=== PATIENT | female | born 1975 | race Two or more races ===

== ENCOUNTER 2023-11-24 07:45 | Emergency (ER) | payer MEDICAID ==
[~2023-11-24] VITALS: Ht 165.1 cm; Wt 86.3 kg
[2023-11-24 08:40] VITALS: BP 124/72; PULSE 70; RESP 18; TEMP 98; O2SAT 98
[2023-11-24] MEDS ORDERED: AMOX875T3 PO (08:44)
[2023-11-24] MEDS ORDERED: IBUP-1456 PO (08:44)
[2023-11-24] MEDS ORDERED: PRED20TA2 PO (08:44)
== END 2023-11-24 09:03 | disposition home or self-care (01) ==
LOC: ER 07:45
DX: J06.9 Acute upper respiratory infection, unspecified (principal); H66.92 Otitis media, unspecified, left ear; Z79.899 Other long term (current) drug therapy

== ENCOUNTER 2024-08-09 07:53 | Emergency (ER) | payer MEDICAID ==
[~2024-08-09] VITALS: Ht 162.6 cm; Wt 86.9 kg
[~2024-08-09 07:53] MED LIST: AMOX875T3 PO; IBUP-1456 PO; PRED20TA2 PO
--- NOTE | 2024-08-09 08:14 | ED.PDOC ---
Eye-HPI HPI Comments 48Y F presents to ED with chief complaint left eye pain x1day. Pt states she felt pain began shortly after waking up. Pt states the light bothers her left eye and she has no visual changes. Pt reports minimal clear discharge. Pt denies use of contacts. No other signs/symptoms or history reported. no injuries Time Seen by MD: 08:04 Primary Care Provider: MARCIA Reviewed Notes: Nurses Notes, Medications, Allergies Allergies: Coded Allergies: NO KNOWN ALLERGIES (Unverified , 08/10/10) Home Meds Active Scripts Ibuprofen (Ibuprofen) 800 Mg Tab, 1 TAB PO TID, #20 TAB Prov:SO AGUIRRE 11/24/23 Prednisone (Prednisone) 20 Mg Tab, 60 MG PO DAILY for 5 Days, #15 TAB Prov:SO AGUIRRE 11/24/23 Amoxicillin Trihydrate (Amoxicillin) 875 Mg Tab, 875 MG PO BID, #20 TAB Prov:SO AGUIRRE 11/24/23 Information Source: Patient Mode of Arrival: Ambulatory Timing: Days Duration: Since onset Prehospital treatment: None Quality: Pain, Red, Discharge Eye Location: Left Lids: Red, Swelling, Discharge Conjunctiva: Swelling, Discharge Pupils: Normal EOM: Normal Onset: Spontaneous History of: None Modifying factors: Nothing Associated signs and symptoms: Discharge, Tearing, Other Past Medical History PAST MEDICAL HISTORY: Denies Surgical History: Denies all surgeries AIR BAG STRIPPER History: Denies all AIR BAG STRIPPER Hx Family History Family History: Unobtainable Social History Smoker: Non-Smoker Alcohol: Denies ETOH Use Drugs: Denies Drug Use Lives In: Home Constitutional: denies: chills, diaphoresis, fatigue, fever, malaise, sweats, weakness, others EENTM: reports: eye pain, eye redness; denies: blurred vision, double vision, ear bleeding, ear discharge, ear drainage, ear pain, ear ringing, hearing loss, mouth pain, mouth swelling, nasal discharge, nose bleeding, nose congestion, nose pain, photophobia, tearing, throat pain, throat swelling, voice changes, others Respiratory: denies: cough, hemoptysis, orthopnea, SOB at rest, shortness of breath, SOB with excertion, stridor, wheezing, others Cardiovascular: denies: chest pain, dizzy spells, diaphoresis, Dyspnea on exertion, edema, irregular heart beat, left arm pain, lightheadedness, palpitations, PND, syncope, others Gastrointestinal: denies: abdomen distended, abdominal pain, blood streaked bowels, constipated, diarrhea, dysphagia, difficulty swallowing, hematemesis, melena, nausea, poor appetite, poor fluid intake, rectal bleeding, rectal pain, vomiting, others Genitourinary: denies: abnormal vagina bleeding, burning, dyspareunia, dysuria, flank pain, frequency, hematuria, incontinence, pain, , vagina discharge, urgency, others Neurological: denies: dizziness, fainting, headache, left sided numbness, left sided weakness, numbness, paresthesia, pre-existing deficit, right sided numbness, right sided weakness, seizure, speech problems, tingling, tremors, weakness, others Musculoskeletal: denies: back pain, gout, joint pain, joint swelling, muscle pain, muscle stiffness, neck pain, others Integumetry: denies: bruises, change in color, change in hair/nails, dryness, laceration, lesions, lumps, rash, wounds, others Allergic/Immunocompromised: denies: Difficulty Healing, Frequent Infections, Hives, Itching, others Hematologic/Lymphatic: denies: anemia, blood clots, easy bleeding, easy bruising, swollen glands, others Endocrine: denies: excessive hunger, excessive sweating, excessive thirst, excessive urination, flushing, intolerance to cold, intolerance to heat, unexplained weight gain, unexplained weight loss, others Psychiatric: denies: anxiety, bipolar disorder, depression, hopeless, panic disorder, schizophrenia, sleepless, suicidal, others All Other Systems: Reviewed and Negative Physical Exam General Appearance: No Apparent Distress, Normal HEENT: Pharynx Normal, TMs Normal, Other (left lateral eye pterygium inflammation. no FB. no corneal abrasion, no swelling, no discharge. no photophobia) Neck: Full Range of Motion, Non-Tender, Normal, Normal Inspection Respiratory: Chest Non-Tender, Lungs Clear, No Accessory Muscle Use, No Respiratory Distress, Normal Breath Sounds Cardiovascular: No Edema, No JVD, No Murmur, No Gallop, Normal Peripheral Pulses, Regular Rate/Rhythm Breast Exam: Deferred Gastrointestinal: No Organomegaly, Non Tender, No Pulsatile Mass, Normal Bowel Sounds, Soft Genitalia: Deferred Pelvic: Deferred Rectal: Deferred Extremities: No calf tenderness, Normal capillary refill, Normal inspection, Normal range of motion, Non-tender, No pedal edema Musculoskeletal : Apperance: Normal Neurologic: Alert, artillery officer II-XII nml as Tested, No Motor Deficits, Normal Affect, Normal Mood, No Sensory Deficits Cerebellar Function: Normal Reflexes: Normal Skin: Dry, Normal Color, Warm Lymphatic: No Adenopathy Was a procedure done? Was a procedure done?: Yes Sedation Sedation?: No Other Procedure Procedure fluorescein staining of left eye after tetracaine to provide topical anesthesia. with lopez lamp, no FB, no corneal abrasions seen. only inflamed left lateral pterygium EENT DIFF Eye: Conjunctivitis, Allergic, Bacterial, Viral, Corneal Abrasion, Corneal Ulceration, Foreign Body-Conjunctiva, Foreign Body-Corneal, Foreign Body- Intraocular, Foreign Body-Lid, Glaucoma, Hordeolum (stye), Iritis/Uveitis, Orbital Cellulits, Periorbital Cellulits, Subconjunctival Hemorrhag, Ultraviolet Keratitis, Other (pterigiym) Ear: N/A Nose: N/A Mouth: N/A Sore Throat: N/A X-Ray, Labs, Meds, VS Vital Signs Date Time Temp Pulse Resp B/P (MAP) Pulse Ox O2 Delivery O2 Flow Rate FiO2 08/09/24 08:08 97.9 75 16 137/90 (106) 95 97.9 Time of 1ST Reevaluation: 08:34 Reevaluation 1ST: Unchanged Time of 2ND Reevaluation: 08:33 Reevaluation 2ND: Improved Patient Education/Counseling: Diagnosis, Treatment, Prognosis, Need For Follow Up Family Education/Counseling: No Family Present Additional Information The following tests were ordered, and results were reviewed by me: None Additional Information was gathered from interviewing the following independent historians: None I reviewed and agreed with the following test results read by other providers: None I discussed treatment and results with medical personnel and: Patient Comprehensive systems review obtained and negative except for what is stated in the HPI. pt does not have corneal FB or abrasions. she has an inflamed pterygium. i do not suspect glaucoma. the globe is soft, nontender Departure 1 Departure Time of Disposition: 08:35 Impression: Primary Impression: Pterygium of left eye Disposition: 01 HOME / SELF CARE / HOMELESS Condition: Good e-Prescriptions Diclofenac Sodium (Ophth) (Diclofenac Sodium) 0.1 % Shirin 0.1 % OP Q6HP PRN, #1 EA Prov: ALEXANDRA DILLARD MD 08/09/24 Discharged With: Self Critical Care Note Critical Care Time?: No Stability Stability form required: No Heart Score Heart Score: Heart Score Response (Comments) Value History N/A 0 EKG N/A 0 Age N/A 0 Risk Factors N/A 0 Troponin N/A 0 Total 0 I personally scribed for ALEXANDRA DILLARD MD ([email or web address]) on 08/09/24 at 08:13. Electronically submitted by Kari Jhaveri ([email or web address]). ALEXANDRA DILLARD MD Aug 09, 2024 08:13
[2024-08-09] MEDS: FLUORESCEIN SOD OPTH TEST STRIP LEFTEYE ONE (08:17)
[2024-08-09] MEDS: TETRACAINE HCL 0.5% OPTH(EYE) SOLN 4ML LEFTEYE ONE (08:18)
[2024-08-09] MEDS ORDERED: DICL0.1S20 OP (08:37)
[2024-08-09 08:57] VITALS: BP 139/83; PULSE 66; RESP 16; TEMP 98; O2SAT 95
== END 2024-08-09 09:00 | disposition home or self-care (01) ==
LOC: ER 07:53
DX: H11.002 Unspecified pterygium of left eye (principal); Z79.52 Long term (current) use of systemic steroids; Z79.1 Long term (current) use of non-steroidal anti-inflammatories (NSAID)